=== PATIENT | female | born 1975 | race Caucasian/White ===

== ENCOUNTER → 2017-10-30 | Outpatient (CLI) | payer OTHER ==
[~2017-10-30] MED LIST: Glucophage1000 MG PO; Neurontin 300300 MG PO
== END | disposition home or self-care (01) ==
LOC: LAB SHORT 07:53 → PLD 07:53
DX: R10.30 Lower abdominal pain, unspecified (principal); B97.7 Papillomavirus as the cause of diseases classified elsewhere
CPT/HCPCS: 88305